=== PATIENT | male | born 2000 | race African-American/Black ===

== ENCOUNTER 2021-10-18 10:07 | Emergency (ER) | payer MEDICAID ==
[~2021-10-18] VITALS: Ht 185.4 cm; Wt 81.0 kg
[2021-10-18] MEDS ORDERED: ACETAMINOPHEN 325MG TABLET PO ONE (10:15)
[2021-10-18] MEDS ORDERED: TOPUD PO (11:22)
[2021-10-18 12:10] VITALS: BP 83/94
== END 2021-10-18 14:37 | disposition home or self-care (01) ==
LOC: ER 10:07
DX: S09.8XXA Other specified injuries of head, initial encounter (principal); M79.18 Myalgia, other site; V49.49XA Driver injured in collision with other motor vehicles in traffic accident, initial encounter; Y93.89 Activity, other specified; Y92.488 Other paved roadways as the place of occurrence of the external cause
CPT/HCPCS: 99284

== ENCOUNTER 2025-07-31 01:23 | Emergency (ER) | payer OTHER, MEDICAID ==
[~2025-07-31] VITALS: Ht 185.4 cm; Wt 99.0 kg
[~2025-07-31 01:23] MED LIST: TOPUD PO
[2025-07-31 01:25] VITALS: TEMP 99.1; O2SAT 97
[2025-07-31] MEDS: SODIUM CHLORIDE 0.9% 1,000 ML IV ONE (02:35)
[2025-07-31 02:44] LABS: BASOPHILS % 0.5 % (0.0-2.0); EOSINOPHILS % 2.6 % (0.0-5.0); HEMATOCRIT. 47.3 % (42.0-52.0); HEMOGLOBIN. 15.2 g/dL (14.0-18.0); LYMPHOCYTES % 27.8 % (20.0-50.0); MEAN PLATELET VOLUME 7.9 fl (7.4-10.4); MONOCYTES % 6.4 % (2.0-8.0); NEUTROPHILS % 62.7 % (40.0-76.0); PLATELET 274 x1000/uL (130-400); RED BLOOD CELL COUNT 5.42 mill/uL (4.7-6.1); RED CELL DISTRIBUTION WIDTH 13.0 % (11.6-14.6)
[2025-07-31 02:48] LABS: CREATININE 1.2 mg/dL (0.6-1.3); ETHANOL BLOOD < 10 mg/dL (<10); UREA NITROGEN BLOOD 9 mg/dL (9-23)
[2025-07-31 02:49] LABS: ASPARTATE AMINOTRANSFERASE 22 IU/L (<34)
[2025-07-31 02:50] LABS: BILIRUBIN DIRECT 0.3 mg/dL (<=3.0); BILIRUBIN TOTAL 1.0 mg/dL (0.1-1.0); PROTEIN TOTAL 7.2 g/dL (6.0-8.3)
[2025-07-31] MEDS ORDERED: ACET-2708 MT (03:43)
[2025-07-31 03:46] VITALS: BP 122/73; PULSE 68; RESP 21; O2SAT 100
== END 2025-07-31 03:55 | disposition home or self-care (01) ==
LOC: ER 01:23
DX: R53.1 Weakness (principal); F10.90 Alcohol use, unspecified, uncomplicated; V47.5XXA Car driver injured in collision with fixed or stationary object in traffic accident, initial encounter; Y92.410 Unspecified street and highway as the place of occurrence of the external cause; Y93.89 Activity, other specified; Y99.8 Other external cause status; Y90.9 Presence of alcohol in blood, level not specified
CPT/HCPCS: 80076; 80048; 80320; 82140; 82550; 85025; 36415; 96360; 99283; J7030; G0480